=== PATIENT | female | born 1955 | race Caucasian/White ===

== ENCOUNTER 2016-08-06 13:02 | Emergency (ER) | payer MEDICARE, OTHER ==
[~2016-08-06] VITALS: Ht 142.2 cm; Wt 81.2 kg
[~2016-08-06 13:02] MED LIST: CHLO500T14 PO; CHOL500021 PO; ESCI20TA PO; HYDR-2762 PO; LISI1TAB3 PO; METO25TA9 PO; NITR0.4T SL; OMEP40CA5 PO; TRAM50TA PO
[2016-08-06 14:15] VITALS: BP 127/64
[2016-08-06] MEDS ORDERED: TOBR5DRO6 EACHEYE (14:37)
--- NOTE | 2016-08-06 14:37 | PHYS DOC ---
Past Medical History Past Medical History: Arthritis, Depression, GERD, Hypertension, Other Additional Past Medical Histor: CHRONIC BACK PAIN, INSOMNIA Past Surgical History: Appendectomy, Cholecystectomy, Hysterectomy Additional Past Surgical Histo: KYPHOPLASTY Alcohol Use: None Drug Use: None Adult General Chief Complaint Chief Complaint: EYE PROBLEMS HPI HPI Patient is a 60 year old female with history of hypertension depression and acid reflex presents today with redness to the right eye that she noted this morning, she is also complaining of the eye having crusty yellow matter to the eye when she woke up. Denies any vision loss. Review of Systems Review of Systems Constitutional: Denies fever or chills [] Eyes: Right eye redness HENT: Denies nasal congestion or sore throat [] Musculoskeletal: Denies back pain or joint pain [] Integument: Denies rash or skin lesions [] Neurologic: Denies headache, focal weakness or sensory changes [] Endocrine: Denies polyuria or polydipsia [] Allergies Allergies Allergies Coded Allergies Type Severity Reaction Last Updated Verified Penicillins Allergy Intermediate Hives 04/13/15 Yes Physical Exam Physical Exam Constitutional: Well developed, well nourished, no acute distress, non-toxic appearance. [] HENT: Normocephalic, atraumatic, bilateral external ears normal, oropharynx moist, no oral exudates, nose normal. [] Eyes: PERRLA, EOMI, right conjunctiva is mildly injected. There is trace amount of yellow drainage on the eyelid. Left conjunctiva is normal. Skin: Warm, dry, no erythema, no rash. [] Back: No tenderness, no CVA tenderness. [] Extremities: No tenderness, no cyanosis, no clubbing, ROM intact, no edema. [] Neurologic: Alert and oriented X 3, normal motor function, normal sensory function, no focal deficits noted. [] Psychologic: Affect normal, judgement normal, mood normal. [] Current Patient Data Vital Signs Vital Signs Date Time Temp Pulse Resp B/P Pulse Ox O2 Delivery O2 Flow Rate FiO2 08/06/16 14:15 98.7 100 16 94 Room Air 98.7 EKG EKG [] Radiology/Procedures Radiology/Procedures [] Course & Med Decision Making Course & Med Decision Making Pertinent Labs and Imaging studies reviewed. (See chart for details) Patient has bacterial conjunctivitis to the right eye, discharged with tobramycin eyedrops. Follow-up with dairy science teacher in one week if symptoms continue. Dragon Disclaimer Dragon Disclaimer This electronic medical record was generated, in whole or in part, using a voice recognition dictation system. Departure Departure Impression: Primary Impression: Acute bacterial conjunctivitis of right eye Disposition: HOME, SELF-CARE Condition: STABLE Referrals: JOHNY VELASQUEZ (PCP) SPEEDY MCCLAIN MD Follow-up with your own doctor the provided dairy science teacher in one week Patient Instructions: Bacterial Conjunctivitis Additional Instructions: You seen for pinkeye of the right eye. Keep your hands clean. You can wash the affected eye with baby shampoo and a clean piece of cloth. Use the antibiotic eyedrops as prescribed. Follow-up with the eye doctor in one week if symptoms continue. Come back to the emergency room if you have any concerning symptoms. Scripts Tobramycin 5 Ml Drops1 Drop EACHEYE Q4HRS W/A #5 ML Prov:DENILSON LOZANO APRN 08/06/16 DENILSON LOZANO APRN Aug 06, 2016 14:37
== END 2016-08-06 14:48 | disposition home or self-care (01) ==
LOC: ER 13:02
DX: H10.31 Unspecified acute conjunctivitis, right eye (principal); I10 Essential (primary) hypertension; G89.29 Other chronic pain; G47.00 Insomnia, unspecified; M19.90 Unspecified osteoarthritis, unspecified site; Z88.0 Allergy status to penicillin
CPT/HCPCS: 99283

== ENCOUNTER 2017-02-10 23:28 | Emergency (ER) | payer MEDICARE, OTHER ==
[~2017-02-10] VITALS: Ht 139.7 cm; Wt 68.0 kg
[~2017-02-10 23:28] MED LIST changes: -ESCI20TA PO; +ESCITALOPRAM OX20 MG PO; +TOBR5DRO6 EACHEYE
[2017-02-11] MEDS ORDERED: TRAM-48 PO (00:30)
--- NOTE | 2017-02-11 00:31 | PHYS DOC ---
Past Medical History Past Medical History: Arthritis, Depression, GERD, Hypertension, Other Additional Past Medical Histor: CHRONIC BACK PAIN, INSOMNIA Past Surgical History: Appendectomy, Cholecystectomy, Hysterectomy Additional Past Surgical Histo: KYPHOPLASTY Alcohol Use: None Drug Use: None Adult General Chief Complaint Chief Complaint: HEADACHE HPI HPI Patient is a 61 year old female with history significant for hypertension presents to the ER today complaining of pain to her neck and head on for approximately one day now. She denies any history of diabetes liver longer kidney problems. Patient does not smoke drink or do any drugs. Patient has had no prior surgeries. Patient denies any fevers shakes chills nausea vomiting diarrhea chest pain shortness of breath cough cold runny nose. Patient reports she has pain when she turns her head. It has any weakness or arms or legs. Patient reports she has not tried any medications at home. Patient reports no Tylenol or ibuprofen trial prior to coming to the ER. Review of systems: Constitutional: Denies fever or chills Eyes: Denies change in visual acuity, redness, or eye pain HENT: Denies nasal congestion or sore throat All other review systems are negative except as documented in the history of present illness portion. Physical exam: Constitutional: Well developed, well nourished, no acute distress, non-toxic appearance. HENT: Normocephalic, atraumatic, bilateral external ears normal, nose normal. Eyes: EOMI, conjunctiva normal, no discharge. Neck: Normal range of motion, no tenderness, supple, no stridor. Cardiovascular:Heart rate regular rhythm Lungs & Thorax: Bilateral breath sounds clear to auscultation no respiratory distress Abdomen: Bowel sounds normal, soft, no tenderness, no masses, no pulsatile masses. Skin: Warm, dry, no erythema, no rash. Back: No tenderness, no CVA tenderness. Extremities: No tenderness, no cyanosis, no clubbing, ROM intact, no edema. Neurologic: Alert and oriented X 3, normal motor function, normal sensory function, no focal deficits noted. Psychologic: Affect normal, judgement normal, mood normal. Assessment and plan This is a 61-year-old female who presents here today with headache and pain to her neck. Patient's clinically hemodynamically stable. Patient does not present with any signs or symptoms consistent with a subarachnoid hemorrhage. Patient does not present with any signs or symptoms O be consistent with subdural hematoma. Patient up with a sinus symptoms consistent with meningitis. Patient reports that the headache has been gradual over the course of the day. We will try Ultram with her and will have her follow-up with her primary care physician for further evaluation. Allergies Allergies Allergies Coded Allergies Type Severity Reaction Last Updated Verified Penicillins Allergy Intermediate Hives 04/13/15 Yes EKG EKG [] Radiology/Procedures Radiology/Procedures [] Course & Med Decision Making Course & Med Decision Making Pertinent Labs and Imaging studies reviewed. (See chart for details) [] Dragon Disclaimer Dragon Disclaimer This electronic medical record was generated, in whole or in part, using a voice recognition dictation system. Departure Departure Impression: Primary Impression: Headache Referrals: JOHNY VELASQUEZ (PCP) Patient Instructions: General Headache Without Cause Additional Instructions: Thank you for allowing us to participate in your care today. Followup with your primary care physician in 3 days if your symptoms do not improve. Call your Primary Doctor tomorrow and inform them of your visit today. If you do not have a primary care provider you can ask for a list of our primary care providers. Return to the emergency department you have any new or concerning findings. This should be evaluated by the primary care physician and any necessary consulting services for continued management within a few days after discharge. Return to emergency room if you have any new or concerning symptoms including but not limited to fever, chills, nausea, vomiting, intractable pain, any new rashes, chest pain, shortness of air, uncontrolled bleeding, difficulty breathing, and/or vision loss. You may have been prescribed medication that can change in your level of thinking and ability to operate machinery. These medications include hydrocodone and Ativan. Also, Benadryl has been known to do this as well. Be sure to check with your pharmacist and ask if the medications you've prescribed can affect your level of consciousness. I recommend not operating heavy machinery or driving while on medication such as these. Scripts Tramadol Hcl (ULTRAM) 50 Mg Tablet 1 TAB PO Q6HRS, #14 TAB Prov: LA NUNN MD 02/11/17 LA NUNN MD Feb 11, 2017 00:31
[2017-02-11 00:36] VITALS: BP 152/74
[2017-02-11] MEDS ORDERED: traMADol 50 MG TABLET PO ONE (00:45)
== END 2017-02-11 00:44 | disposition home or self-care (01) ==
LOC: ER 23:28
DX: R51 Headache (principal); M54.2 Cervicalgia; M19.90 Unspecified osteoarthritis, unspecified site; F32.9 Major depressive disorder, single episode, unspecified; K21.9 Gastro-esophageal reflux disease without esophagitis; I10 Essential (primary) hypertension; G89.29 Other chronic pain; G47.00 Insomnia, unspecified; Z88.0 Allergy status to penicillin
CPT/HCPCS: 99283

== ENCOUNTER → 2017-04-20 | Outpatient (CLI) | payer MEDICARE, OTHER ==
[~2017-04-20] MED LIST changes: +METO-239 PO; -METO25TA9 PO; +TRAM-48 PO
--- NOTE | 2017-04-20 14:38 | RAD ---
DATE: 04/20/2017 EXAM: DIGITAL SCREEN BILAT W/CAD HISTORY: Routine screening COMPARISON: 01/07/2013 This study was interpreted with the benefit of Computerized Aided Detection (CAD). FINDINGS: Breast Density: SCATTERED The breast parenchyma shows scattered fibroglandular densities. Breast parenchyma level B. Nodules identified in the bilateral breast appear similar to prior exam. There is a small asymmetry identified in the right inner lower breast. IMPRESSION: Small asymmetry identified in the right inner lower breast. Recommend spot compression view of the right breast. If this persists ultrasound is recommended BI-RADS CATEGORY: 0 INCOMPLETE: NEEDS ADDITIONAL IMAGING EVALUATION AND/OR PRIOR MAMMOGRAMS FOR COMPARISON. RECOMMENDED FOLLOW-UP: ADD ADDITIONAL IMAGING PQRS compliance statement: Patient information was entered into a reminder system with a target due date immediate recall for the next mammogram. Mammography is a sensitive method for finding small breast cancers, but it does not detect them all and is not a substitute for careful clinical examination. A negative mammogram does not negate a clinically suspicious finding and should not result in delay in biopsying a clinically suspicious abnormality. "Our facility is accredited by the [employer] Mammography Program."
== END | disposition home or self-care (01) ==
LOC: MAMMO 12:40
PROVIDERS: ATTEND Internal Medicine
DX: Z12.31 Encounter for screening mammogram for malignant neoplasm of breast (principal)
CPT/HCPCS: G0202; 77067

== ENCOUNTER → 2017-04-21 | Outpatient (CLI) | payer MEDICARE ==
--- NOTE | 2017-04-21 13:50 | KCIC ---
EXAM: Dual energy x-ray absorptiometry (DEXA). HISTORY: Postmenopausal female presents for osteoporosis screening. COMPARISON: None. TECHNIQUE: Dual energy x-ray absorptiometry of the left hip and right forearm was performed. Calculation of bone mineral density based on standard deviations above or below the expected young adult normal value (T-score) was completed. FINDINGS: The average total bone mineral density in the left hip is 0.746 g/cmxcm, corresponding with a T-score of -1.6. The average total bone mineral density in the right radial is 0.410 g/cmxcm, corresponding with a T-score of -3.0. IMPRESSION: 1. Osteoporosis measured at the right forearm. 2. Osteopenia measured at the left hip. Note: Definitions established by the World Health Organization: 1. Normal: T-score is -1.0 or above. 2. Osteopenia: T-score is between -1.0 and -2.5 . 3. Osteoporosis: T-score is -2.5 or below. Electronically signed by: Valentina Larios MD (04/21/2017 1:46 PM) [facility]
--- NOTE | 2017-04-21 13:51 | KCIC ---
EXAM: Lumbar spine, 2 views. HISTORY: Pain. COMPARISON: None. FINDINGS: Frontal and lateral views of the lumbar spine are obtained. There is mild chronic compression fracture with vertebroplasty changes at L1. There is minimal retropulsion of the posterior inferior cortex into the central canal at this level. There is sacralization of the L5 segment and there is a rudimentary L5-S1 disc. There are hypoplastic T12 ribs. There is grade 1 anterolisthesis of L4 and L5, measuring 5 mm. There is degenerative endplate remodeling with anterior predominant spurring at the lower thoracic levels. There are cholecystectomy clips. IMPRESSION: 1. Mild chronic compression fracture with vertebroplasty changes at L1. 2. Multilevel degenerative change predominantly at the lower thoracic levels. 3. Grade 1 anterolisthesis of L4 and L5. 4. Transitional lumbosacral segment and hypoplastic T12 ribs. Electronically signed by: Valentina Larios MD (04/21/2017 1:48 PM) [facility]
== END ==
LOC: KCIC DEXA 12:38
PROVIDERS: ATTEND Internal Medicine
DX: M54.9 Dorsalgia, unspecified (principal); Z78.0 Asymptomatic menopausal state
CPT/HCPCS: 72100; 77080; 77081

== ENCOUNTER → 2017-05-01 | Outpatient (CLI) | payer MEDICARE ==
--- NOTE | 2017-05-01 13:14 | RAD ---
DATE: 05/01/2017. EXAM: DIGITAL DIAGNOSTIC RT, ULTRASOUND BREAST RIGHT. HISTORY: Density medially in the right breast. Additional views and ultrasound are requested. COMPARISON: 04/20/2017 through 2010. This study was interpreted with the benefit of Computerized Aided Detection (CAD). FINDINGS: The breast parenchyma shows scattered fibroglandular densities. Breast parenchyma level B.. The density of concern inferomedially on the right has correlates dating back 09/12/2010. It resolves to its former appearance and has not definitively increased in size. Sonography at the 3:00 position 11 cm from the nipple reveals a hypoechoic parallel mass that measures 6 x 3 mm. There is no clear internal flow. This is consistent with a small fibroadenoma and is likely benign. There is no suspicious sonographic or mammographic finding. BI-RADS CATEGORY: 2 BENIGN FINDING(S). RECOMMENDED FOLLOW-UP: 12M 12 MONTH FOLLOW-UP. PQRS compliance statement: Patient information was entered into a reminder system with a target due date 05/01/2018 for the next mammogram. Mammography is a sensitive method for finding small breast cancers, but it does not detect them all and is not a substitute for careful clinical examination. A negative mammogram does not negate a clinically suspicious finding and should not result in delay in biopsying a clinically suspicious abnormality. "Our facility is accredited by the [employer] Mammography Program."
== END | disposition home or self-care (01) ==
LOC: MAMMO 12:00
PROVIDERS: ATTEND Internal Medicine
DX: N63.10 Unspecified lump in the right breast, unspecified quadrant (principal); R92.2 Inconclusive mammogram
CPT/HCPCS: 76641; G0206; 77065

== ENCOUNTER 2017-08-05 13:11 | Emergency (ER) | payer MEDICARE | END 2017-08-05 14:06 | disposition home or self-care (01) | LOC: ER 13:11 | DX: Z76.0 Encounter for issue of repeat prescription (principal); G89.29 Other chronic pain; M54.9 Dorsalgia, unspecified; K21.9 Gastro-esophageal reflux disease without esophagitis; I10 Essential (primary) hypertension; Z90.710 Acquired absence of both cervix and uterus; Z90.49 Acquired absence of other specified parts of digestive tract; Z88.0 Allergy status to penicillin | CPT/HCPCS: 99283 ==

== ENCOUNTER → 2018-11-09 | Outpatient (CLI) | payer MEDICAID, MEDICARE, OTHER ==
[2017-08-05 13:20] VITALS: BP 144/78
[~2018-11-09] MED LIST changes: -HYDR-2762 PO; +HYDR-2765 PO
--- NOTE | 2018-11-09 17:18 | CARD ---
MR#: [id number] Date of Study: 11/09/2018 Ordering Physician: JOHNY VELASQUEZ, Referring Physician: JOHNY VELASQUEZ, Tech: Maria Flores APPROVED REPORT EXAM: Two-dimensional and M-mode echocardiogram with Doppler and color Doppler. Other Information Quality : AverageHR: 86bpm Technically limited study due to body habitus. INDICATION CAD RISK FACTORS Hypertension Hyperlipidemia 2D DIMENSIONS RVDd2.4 (2.9-3.5cm)Left Atrium(2D)3.3 (1.6-4.0cm) IVSd0.9 (0.7-1.1cm)Aortic Root(2D)3.1 (2.0-3.7cm) LVDd4.3 (3.9-5.9cm)LVOT Diameter2.0 (1.8-2.4cm) PWd1.1 (0.7-1.1cm)LVDs3.0 (2.5-4.0cm) FS (%) 29.4 %SV46.3 ml LVEF(%)56.6 (>50%) Aortic Valve AoV Peak Sean.121.1cm/sAoV VTI21.8cm AO Peak GR.5.9mmHgLVOT Peak Sean.88.8cm/s LVOT VTI 17.79cmAO Mean GR.3mmHg TALHA (VMAX)1.61nt6IJF (VTI)2.62cm2 Mitral Valve MV E Bkbixcxe88.5cm/sMV DECEL JVTM873el MV A Krnqmzmw41.6cm/sMV ZMK43sz E/A Ratio1.0MVA (PHT)4.86cm2 TDI E/Lateral E'8.1E/Medial E'11.2 Pulmonary Valve PV Peak Mepmzbcs51.8cm/sPV Peak Grad.4mmHg Tricuspid Valve TR P. Mecipmfr157px/sRAP QUJRCDTP5hxKe TR Peak Gr.68rnDiDTIV17nrTq Pulmonary Vein S1 Sekykxqb95.4cm/sD2 Uykuqkwt65.7cm/s PVa [id number] LEFT VENTRICLE The left ventricle is normal size. There is normal left ventricular wall thickness. The left ventricu lar systolic function is normal. The Ejection Fraction is 50-55%. There is normal LV segmental wall m otion. RIGHT VENTRICLE The right ventricle is normal size. There is normal right ventricular wall thickness. The right ventr icular systolic function is normal. ATRIA The left atrium size is normal. The right atrium size is normal. The interatrial septum is intact wit h no evidence for an atrial septal defect or patent foramen ovale as noted on 2-D or Doppler imaging. AORTIC VALVE The aortic valve is normal in structure and function. Doppler and Color Flow revealed no significant aortic regurgitation. There is no significant aortic valvular stenosis. MITRAL VALVE The mitral valve is normal in structure and function. There is no evidence of mitral valve prolapse. There is no mitral valve stenosis. Doppler and Color Flow revealed trace mitral regurgitation.. TRICUSPID VALVE The tricuspid valve is normal in structure and function. Doppler and Color Flow revealed trace tricus pid regurgitation with an estimated PAP of 20 mmHg. There is no tricuspid valve stenosis. PULMONIC VALVE The pulmonic valve is not well visualized. Doppler and Color Flow revealed no pulmonic valvular regur gitation. GREAT VESSELS The aortic root is normal in size. The IVC is normal in size and collapses >50% with inspiration. PERICARDIAL EFFUSION There is no evidence of significant pericardial effusion. Critical Notification Critical Value: No <Conclusion> The left ventricular systolic function is normal. The Ejection Fraction is 50-55%. There is normal LV segmental wall motion. Trace mitral regurgitation.. Trace tricuspid regurgitation with an estimated PAP of 20 mmHg. There is no evidence of significant pericardial effusion. Signed by : Josef Calvin, Electronically Approved : 11/09/2018 17:18:00
== END | disposition home or self-care (01) ==
LOC: ECHO 12:19
PROVIDERS: ATTEND Internal Medicine
DX: I25.10 Atherosclerotic heart disease of native coronary artery without angina pectoris (principal); I10 Essential (primary) hypertension; E78.5 Hyperlipidemia, unspecified
CPT/HCPCS: 93306

== ENCOUNTER → 2019-03-01 | Outpatient (CLI) | payer OTHER ==
[2017-08-05 13:20] VITALS: BP 144/78
[~2019-03-01] MED LIST changes: +LISI1TAB23 PO; -LISI1TAB3 PO
[2019-03-01 17:32] LABS: BILIRUBIN,URINE SMALL (NEG); CLARITY,URINE CLEAR; COLOR,URINE YELLOW; NITRITE,URINE NEGATIVE (NEG); PROTEIN,URINE NEGATIVE (NEG-TRACE); UROBILINOGEN,URINE 0.2 mg/dL (0.2 mg/dL)
[2019-03-01 17:40] LABS: SQUAMOUS EPITHELIAL CELL,UR MOD /LPF
[2019-03-01 17:41] LABS: BACTERIA,URINE MOD /HPF (0-FEW); RBC,URINE 0 /HPF (0-2); WBC,URINE OCC /HPF (0-4)
--- NOTE | 2019-03-01 19:30 | RAD ---
EXAM: AP, lateral and lumbosacral spot views of the lumbar spine DATE: 03/01/2019 12:00 AM INDICATION: Chronic low back pain, right flank pain COMPARISON: No Prior FINDINGS: Small ribs are seen at T12. 5 nonrib-bearing lumbar-type vertebral bodies with partial sacralization of L5. L1 kyphoplasty changes are seen. Vertebral body heights are otherwise preserved. Disc heights are preserved. Anterior plate osteophytes are seen at the thoracolumbar junction. Moderate facet degenerative change at L2-3 and below. IMPRESSION: No evidence for acute fracture or subluxation. Electronically signed by: Adonay Avalos MD (03/01/2019 5:15 PM) [facility]
--- NOTE | 2019-03-02 09:56 | RAD ---
AP pelvis radiograph 03/01/2019 CLINICAL HISTORY: Pelvic pain and chronic right flank pain. An AP digital radiograph of the pelvis to include both hips was obtained. Surgical clips overlie the right upper quadrant abdomen. No pelvic bone fracture is seen. The hips are intact. No radiopaque calculus is seen. The visualized abdominal bowel gas pattern is nonobstructive. IMPRESSION: No acute abnormality is seen. Electronically signed by: Henry Crowder MD (03/02/2019 9:53 AM) [facility]
== END | disposition home or self-care (01) ==
LOC: RAD 15:20
PROVIDERS: ATTEND Internal Medicine
DX: D72.829 Elevated white blood cell count, unspecified (principal); G89.29 Other chronic pain; M54.5 Low back pain; R10.9 Unspecified abdominal pain; M25.78 Osteophyte, vertebrae
CPT/HCPCS: 72100; 72170; 81001; 87086